=== PATIENT | male | born 1990 | race African-American/Black ===

== ENCOUNTER 2017-04-08 15:04 | Emergency (ER) | payer SELFPAY ==
--- NOTE | 2017-04-08 16:23 | UC ---
Upper Extremity HPI - HPI Summary HPI Summary: 27 yo M presents with his female SO, c/o left wrist and hand pain and swelling since 04/04/17, after FOOSH injury while playing touch football. Pt states it has been painful and swollen but he did not seek medical attention because he doesn't have health insurance at this time. States he went to work at [employer] yesterday and was advised to leave work and seek medical attention. Pt states he took 1000mg Ibuprofen approximately one hour ago, with no relief of the pain. Pt states he iced the injury immediately after it occurred but it was still swollen. Pt denies other injury. Hx fracture to his left upper arm and left elbow when he was younger. - History of Current Complaint Chief Complaint: UCUpperExtremity Stated Complaint: LEFT ARM PAIN Time Seen by Provider: 04/08/17 16:15 Hx Obtained From: Patient, Family/Project Inspector - female SO Onset/Duration: Sudden Onset, Lasting Days Severity Initially: Moderate Severity Currently: Severe Pain Intensity: 7 Pain Scale Used: 0-10 Numeric Location Of Pain: Is Discrete @ - left wrist and left thumb Character: Sharp, Aching Aggravating Factor(s): Movement Alleviating Factor(s): Nothing Associated Signs And Symptoms: Positive: Swelling Related History: Dominant Hand Right - Allergies/Home Medications Allergies/Adverse Reactions: Allergies Allergy/AdvReac Type Severity Reaction Status Date / Time No Known Allergies Allergy Verified 04/08/17 16:20 PMH/Surg Hx/FS Hx/Imm Hx Previously Healthy: Yes - Surgical History Surgical History: None - Family History Known Family History: Positive: Hypertension - Social History Occupation: Employed Full-time Lives: With Family Alcohol Use: None Substance Use Type: None Smoking Status (MU): Heavy Every Day Tobacco Smoker Review of Systems Constitutional: Negative Skin: Negative Eyes: Negative ENT: Negative Respiratory: Negative Cardiovascular: Negative Gastrointestinal: Negative Motor: Decreased ROM - left hand and wrist due to pain Neurovascular: Negative Musculoskeletal: Arthralgia, Decreased ROM - left hand and wrist due to pain, Other: - swelling left hand and wrist Neurological: Negative Psychological: Negative Is Patient Immunocompromised?: No All Other Systems Reviewed And Are Negative: Yes Physical Exam Triage Information Reviewed: Yes Appearance: Well-Appearing, Well-Nourished, Pain Distress Vital Signs: Initial Vital Signs Temp 98.7 F 04/08/17 16:16 Pulse 116 04/08/17 16:16 Resp 15 04/08/17 16:16 BP 133/78 04/08/17 16:16 Pulse Ox 100 04/08/17 16:16 tachycardia noted; Pt in pain Vital Signs Reviewed: Yes Eyes: Positive: Conjunctiva Clear ENT: Positive: Normal ENT inspection Neck: Positive: Supple, Nontender Respiratory: Positive: Chest non-tender, Lungs clear, Normal breath sounds, No respiratory distress Cardiovascular: Positive: RRR, No Murmur, Pulses Normal, Brisk Capillary Refill Musculoskeletal: Positive: Strength Limited @ - left wrist and left thumb, ROM Limited @ - left wrist and left hand especially left thumb; +snuff box tenderness on left; tenderness left thumb at base, ?laxity of ulnar collateral ligaments, Other: - radial and ulnar pulses intact Neurological: Positive: Alert, Muscle Tone Normal, Other: - sensation intact left hand and wrist. Psychological Exam: Normal Skin Exam: Normal Re-Evaluation - Re-Evaluation First Eval Re-Evaluation Time: 17:30 - improved after norco. Advised of xray results, discussed scaphoid fxs and UCL tears/sprains Change: Improved Upper Extremity Course/Dx - Course Course Of Treatment: pt given ice, norco 5/325mg x 1. xray shows no fx. pt placed in thumb spica splint. discussed scaphoid fractures - Differential Dx/Diagnosis Differential Diagnosis/HQI/PQRI: Contusion, Fracture (Closed), Strain, Sprain Provider Diagnoses: left wrist pain with snuff box tenderness, suspect scaphoid fracture. left thumb pain, suspect ulnar collateral ligament sprain or tear - Physician Notification/Consults Discussed Patient Care With: Narinder Roman - no fracture noted in thumb or wrist Discharge - Discharge Plan Condition: Stable Disposition: HOME Prescriptions: HYDROcodone/ACETAMIN 5-325 MG* [[place] 5-325 TAB*] 1 tab PO Q6H PRN #12 tab MDD 4 PRN Reason: Pain Ibuprofen TAB* [Motrin TAB* 800 MG] 800 mg PO Q6H #20 tab Patient Education Materials: Skier's Thumb (ED), Suspected Fracture (ED), Scaphoid Fracture (ED) Forms: *Work Release Referrals: Lee Worley MD [Medical Doctor] - 2 Days No Primary Care Phys,NOPCP [Primary Care Provider] - Additional Instructions: Wear the splint continuously until you are seen by the orthopedist. Take ibuprofen for pain, and hydrocodone for severe pain. You may have torn ligaments in your thumb or a hidden fracture of your scaphoid bone in your wrist, so you need definite follow up with the orthopedist. Return to urgent care if you have new or worsening symptoms.
[2017-04-08] MEDS ORDERED: HYDROcodone/ACETAMIN 5-325 MG* 1 TAB PO ONE (16:31)
--- NOTE | 2017-04-08 17:01 | RAD ---
INDICATION: Pain and swelling at the left distal radius and first and second metacarpals for days after a football injury. COMPARISON: None. TECHNIQUE: 3 views left wrist and 4 views of the left hand were obtained. REPORT: The visualized bones are properly aligned and well corticated. The joint spaces are normal.There is no fracture, dislocation or other focal osseous abnormality. IMPRESSION: No radiographically apparent fracture or dislocation involving the left hand or wrist. If the patient's symptoms persist, follow-up imaging is recommended.
--- NOTE | 2017-04-08 17:37 | RAD ---
INDICATION: Pain and swelling at the left distal radius and first and second metacarpals four days after a football injury. COMPARISON: None. TECHNIQUE: 3 views left wrist and 4 views of the left hand were obtained. REPORT: The visualized bones are properly aligned and well corticated. The joint spaces are normal. There is no fracture, dislocation or other focal osseous abnormality. IMPRESSION: No radiographically apparent fracture or dislocation involving the left hand or wrist. If the patient's symptoms persist, follow-up imaging is recommended.
== END 2017-04-08 17:50 | disposition home or self-care (01) ==
LOC: UCCORT 15:04
DX: M25.532 Pain in left wrist (principal); M79.645 Pain in left finger(s); F17.210 Nicotine dependence, cigarettes, uncomplicated
CPT/HCPCS: 99203; G0463